=== PATIENT | male | born 1940 | race Caucasian/White ===

== ENCOUNTER 2019-01-30 08:26 | Observation (INO) | payer MEDICARE ==
[2019-01-30] VITALS (27 sets, daily range): BP systolic 119–170; BP diastolic 48–90
[~2019-01-30] VITALS: Ht 152.4 cm; Wt 109.8 kg
--- NOTE | ~2019-01-30 | D ---
[address] [address] DISCHARGE SUMMARY Name: BLANE KELLOGG Room: [address] Reva M.RShady#: [id number] Admission: 01/30/19 Attend Phys: Gilberto Eldridge MD Discharge: Date of : 44 Report #: [id number] THIS REPORT FOR: //name// CC: Timoteo Eldridge PRIMARY CARE PHYSICIAN: Dr. [facility]. FINAL DIAGNOSES: 1. Unstable angina. 2. Status post percutaneous coronary intervention to a large belkofski circumflex 90% stenosis. 3. Low normal systolic ejection fraction. 4. Diabetes. 5. Hyperlipidemia. 6. Status post coronary artery bypass grafting. HOSPITAL SUMMARY: The patient is a 78-year-old patient who has a history of prior bypass surgery. 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 His stress test revealed a large inferior defect and based on this, we proceeded with diagnostic cardiac catheterization for assessment of his bypass grafts. He had 3 conduits. The VAZQUEZ to LAD was widely patent. The saphenous vein graft to a small diagonal and marginal was patent. However, the vein graft to his right coronary artery was occluded. His belkofski LAD is occluded proximal to mid body. His belkofski RCA is occluded at its ostium. He had a high-grade stenosis in the 90% range to a circumflex marginal which gave off a distal circumflex PDA. This was treated successfully with drug-eluting stent. The patient does have chronic kidney disease and his preop creatinine was 2.4, on discharge it was 2.2 after aggressive hydration. He will need a BMP and followup. This will be in 3 weeks. DISCHARGE MEDICATIONS: Will include Lipitor 80 mg daily, aspirin 81 mg daily, Brilinta 90 mg p.o. b.i.d. and Coreg 6.25 mg p.o. b.i.d. PROCEDURE PERFORMED: Cardiac catheterization, percutaneous coronary intervention to the belkofski circumflex coronary artery. By: 0925 0211Gilberto Eldridge MD, [facility] /nt
--- NOTE | ~2019-01-30 | D ---
[address] [address] DISCHARGE SUMMARY Name: BLANE KELLOGG Room: [address] Reva Cota#: [id number] Admission: 01/30/19 Attend Phys: Gilberto Eldridge MD Discharge: 02/01/19 Date of : 44 Report #: [id number] THIS REPORT FOR: //name// CC: Timoteo Eldridge DATE OF SERVICE: 02/01/2019 FINAL DISCHARGE DIAGNOSES: 1. Abnormal nuclear stress test. 2. Unstable angina. 3. Status post percutaneous coronary intervention of the circumflex. 4. Mild reduction in global left ventricular systolic function, estimated ejection fraction of 50%. 5. Type 2 diabetes. 6. Hyperlipoproteinemia. 7. Status post remote coronary artery bypass grafting. 8. Postoperative femoral hematoma. PROCEDURES: 1. On 01/30/2019 -- left heart catheterization, selective coronary arteriography, graft study and percutaneous coronary intervention of the big sandy circumflex. 2. On 01/31/2019 -- thrombin injection into the pseudoaneurysm of the right femoral site. HOSPITAL COURSE: The patient is a very pleasant 78-year-old male with a history of coronary artery disease, had a recently abnormal stress test with chest discomfort compatible with angina. He has a number of risk factors including diabetes, hyperlipidemia and significant weight excess. In this context, Dr. Eldridge elected to proceed with cardiac catheterization, which revealed patent grafts, but significant stenosis in the mid portion of the big sandy circumflex. I placed one drug-eluting stent in the mid circumflex with no significant residual narrowing and NED 3 flow of the distal vessel. The patient developed a late right femoral bleed and hematoma at the right femoral site. A pseudoaneurysm was defined on femoral ultrasound, which was closed with thrombin injection into the pseudoaneurysm. The patient did well subsequently and ambulated in the hallways. There was persistent swelling of the right femoral site in the context of hematoma and hemoglobin fell to a melinda of 8.0 grams percent. He did well clinically subsequent to the thrombin injection, ambulated without difficulty. Laboratory on 01/31/2019 revealed a sodium 135, potassium 4.4, BUN 37, [place] [address] DISCHARGE SUMMARY Name: BLANE KELLOGG Jarrett [address] [id number] Admission: 01/30/19 Attend Phys: Gilberto Eldridge MD Discharge: 02/01/19 Date of : 44 Report #: [id number] creatinine 2.2, glucose 243. Hemoglobin 8 grams percent, white blood cell count 8800 with 95,000 platelets. The patient ambulated without difficulty and was discharged to home on the following medications: Aspirin 81 mg daily, atorvastatin 40 mg daily, carvedilol 6.25 mg b.i.d., cholecalciferol 1000 units b.i.d., cyanocobalamin 1000 mcg daily, docusate 100 mg b.i.d., glimepiride or Amaryl 2 mg q.a.m., guaifenesin or Mucinex 600 mg q.12 hours, MiraLax 17 grams b.i.d., and ticagrelor 90 mg b.i.d. FOLLOWUP: As scheduled with our nurse practitioner and subsequently with Dr. Eldridge. Thus, the patient is discharged to home in stable condition on the aforementioned medications with followup as iterated above. By: 1231 1732Fredis Badillo MD, [facility] /nt
--- NOTE | ~2019-01-30 | H ---
[address] [address] HISTORY AND PHYSICAL Name: BLNAE KELLOGG Room: [address] Reva MShadyRShady#: [id number] Admission: 01/30/19 Attend Phys: Gilberto Eldridge MD Discharge: 02/01/19 Date of : 42 Report #: [id number] THIS REPORT FOR: //name// Please refer to the History and Physical performed in the physician's office. By: [facility]8Medical Records Staff ELE /JUSTINA
[~2019-01-30 08:26] MED LIST: ACCUNEB SO1.25 MG/1 INH; ALLOPURINOL 30300 M2 PO; AMARYL2 MG PO; AMARYL4 MG PO; ASPIR 8181 MG PO; ATORVASTATIN CA40 MG PO; COLACE100 MG PO; COREG6.25 MG PO; DILTIAZEM 24HR120 M2 PO; FERREX 150150 MG PO; METFORMIN HCL500 MG PO; MIRALAX17 GM PO; MUCINEX600 MG PO; NORCO 5-325 TA1 EACH PO; NOVOLOG100 UNIT/1 SUBQ; PRAVACHOL80 MG PO; PRINIVIL10 MG PO; SENNA PO; VITAMIN B-12500 MCG PO; VITAMIN D1000 UNI1 PO
[2019-01-30] MEDS ORDERED: MOBIC7.5 MG PO (09:05)
[2019-01-30 09:15] LABS: HEMOGLOBIN 12.3 gm/dL (14.0-18.0); MCH 33.9 pg (26.0-34.0); MCHC 33.2 g/dL (28.0-37.0); MCV 102.1 fL (80.0-100.0); MPV 10.2 fl. (7.2-11.1); RBC 3.62 mil/uL (4.50-6.00); RDW-CV 15.6 % (10.5-14.5); WBC 5.7 thou/uL (4.0-11.0)
[2019-01-30 09:35] LABS: APTT 29.9 Seconds (25.0-31.3); PROTIME 10.6 Seconds (9.20-11.50)
[2019-01-30 09:49] LABS: ALBUMIN 3.3 g/dL (3.4-5.0); ALKALINE PHOSPHATASE 77 U/L (46-116); ANION GAP 11 mmol/L (7-16); BUN 39 mg/dL (7-18); CALCIUM 8.7 mg/dL (8.5-10.1); CHLORIDE 105 mmol/L (98-107); CO2 22 mmol/L (21-32); CREATININE 2.4 mg/dL (0.6-1.3); GLUCOSE 174 mg/dL (70-99); POTASSIUM 4.4 mmol/L (3.5-5.1); SGOT 28 U/L (15-37); SGPT 34 U/L (30-65); SODIUM 138 mmol/L (136-145); TOTAL BILIRUBIN 0.4 mg/dL (<0.1-1.0); TOTAL PROTEIN 7.5 g/dL (6.4-8.2)
[2019-01-30 10:31] LABS: CHOLESTEROL 152 mg/dL (<200); HDL CHOLESTEROL 44 mg/dL (>40); LDL CHOLESTEROL 93 mg/dL (<100); TC:HDL 3.5 Ratio (Not establshd); TRIGLYCERIDE 76 mg/dL (<150); VLDL 15 mg/dL (<40)
[2019-01-30 10:32] LABS: SERUM ASSESSMENT Clear
--- NOTE | 2019-01-30 13:23 | EKG ---
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: : 1940 Requested By: Gilberto Eldridge Order Number: [id number] Reading MD: Gilberto Eldridge Measurements Intervals [place] Rate: 60 P: -54 CO: 256 QRS: -66 QRSD: 160 T: 112 QT: 484 QTc: 484 Interpretive Statements Sinus or ectopic atrial rhythm Prolonged CO interval Right bundle branch block LVH with IVCD and secondary repol abnrm Borderline prolonged QT interval Compared to ECG 03/11/2015 11:48:14 Ectopic atrial rhythm now present Intraventricular conduction delay now present Early repolarization now present Sinus rhythm no longer present Left-axis deviation no longer present T-wave abnormality no longer present Possible ischemia no longer present Electronically Signed On 01-30-2019 13:23:01 HISTOLOGY SPECIALIST by Gilberto Eldridge [email or web address] <ELECTRONICALLY SIGNED> By: Gilberto Eldridge MD, [facility] 01/30/19 1323 0947 0947 Gilberto Eldridge MD, [facility] /EPI
--- NOTE | 2019-01-30 15:01 | EKG ---
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: : 1940 Requested By: Fredis Badillo Order Number: [id number] Reading MD: Gilberto Eldridge Measurements Intervals [place] Rate: 60 P: -8 ID: 265 QRS: -69 QRSD: 162 T: 94 QT: 509 QTc: 509 Interpretive Statements Sinus rhythm Prolonged ID interval Right bundle branch block LVH with IVCD and secondary repol abnrm Prolonged QT interval Baseline wander in lead(s) III,aVF Compared to ECG 01/30/2019 09:47:24 Ectopic atrial rhythm no longer present Electronically Signed On 01-30-2019 15:01:33 DIRECTOR OF PULMONARY UNIT by Gilberto Eldridge [email or web address] <ELECTRONICALLY SIGNED> By: Gilberto Eldridge MD, FACC 01/30/19 1501 1308 1308 Gilberto Eldridge MD, FAC /EPI
[2019-01-31] VITALS (8 sets, daily range): BP systolic 110–141; BP diastolic 60–83
[2019-01-31 05:02] LABS: HEMATOCRIT 30.3 % (42.0-52.0); MCH 34.8 pg (26.0-34.0); MCHC 33.6 g/dL (28.0-37.0); MCV 103.5 fL (80.0-100.0); MPV 10.6 fl. (7.2-11.1); RBC 2.92 mil/uL (4.50-6.00); RDW-CV 15.4 % (10.5-14.5)
[2019-01-31 05:05] LABS: HEMOGLOBIN 10.2 gm/dL (14.0-18.0)
[2019-01-31 05:14] LABS: ALBUMIN 2.6 g/dL (3.4-5.0); CALCIUM 8.3 mg/dL (8.5-10.1); CREATININE 2.2 mg/dL (0.6-1.3); POTASSIUM 4.4 mmol/L (3.5-5.1); TOTAL BILIRUBIN 0.7 mg/dL (<0.1-1.0); TOTAL PROTEIN 5.8 g/dL (6.4-8.2)
[2019-01-31 05:16] LABS: TROPONIN-I LEVEL 4.36 ng/mL (<0.06)
[2019-01-31 11:00] LABS: HEMATOCRIT 28.9 % (42.0-52.0); HEMOGLOBIN 9.7 gm/dL (14.0-18.0); MCH 34.7 pg (26.0-34.0); MCHC 33.7 g/dL (28.0-37.0); MCV 102.8 fL (80.0-100.0); NUCLEATED RBCS 0 /100WBC; PLATELET COUNT* 102 thou/uL (150-400); RBC 2.81 mil/uL (4.50-6.00); RDW-CV 15.7 % (10.5-14.5); WBC 8.7 thou/uL (4.0-11.0)
[2019-01-31 11:28] LABS: ABSOLUTE EOSINOPHILS 0.1 thou/uL (0.0-0.7); ABSOLUTE LYMPHOCYTES 0.9 thou/uL (0.8-5.3); ABSOLUTE MONOCYTES 0.7 thou/uL (0.0-1.2)
[2019-01-31 11:29] LABS: MACROCYTES 2+; OVALOCYTES 1+; PLATELET ESTIMATE DECREASED
[2019-01-31 11:34] LABS: SCHISTOCYTES Occasional
[2019-02-01] VITALS (8 sets, daily range): BP systolic 106–137; BP diastolic 54–78
[2019-02-01 05:12] LABS: HEMATOCRIT 23.2 % (42.0-52.0); MCH 35.1 pg (26.0-34.0); MCHC 34.3 g/dL (28.0-37.0); MCV 102.4 fL (80.0-100.0); MPV 10.1 fl. (7.2-11.1); RBC 2.27 mil/uL (4.50-6.00); RDW-CV 15.6 % (10.5-14.5); WBC 8.8 thou/uL (4.0-11.0)
[2019-02-01] MEDS ORDERED: BRILINTA90 MG PO (11:48)
[2019-02-01] MEDS ORDERED: NITROGLYCERIN0.4 MG SUBLING (11:51)
--- NOTE | 2019-02-01 13:38 | CARD ---
[address] [address] CARDIAC CATH REPORT Name: BLANE KELLOGG Room: [address] Reva Cota#: [id number] Admission: 01/30/19 Attend Phys: Gilberto Eldridge MD Discharge: 02/01/19 Date of : 44 Report #: [id number] THIS REPORT FOR: //name// APPROVED REPORT Study performed: 01/30/2019 09:22:37 Patient Details Patient Status: Out-Patient Room #: The patient is a 78 year-old male Event Personnel Gilberto Eldridge Drencher, Carmelita Ceron RN Civil Celebrant, Cat Leon RTR Scrub, Prosper Ramsey (R) Monitor, Fredis Badillo Project Program Manager Procedures Performed Art Access - R femoral artery* , Selective Right and Left Coronary AngiographyDES Place w/wo Plasty Single CIRC [id number] , Left VentriculogramLeft Heart Cath w/or w/o Coronaries [id number]; aortocoronary saphenous vein bypass graft study and VAZQUEZ graft study Indication Positive stress test Risk Factors Hypercholesterolemia, Hypertension Admission/Lab Medications/Medications given during procedure Aspirin, Platelet Aff. Inhib., Angiomax bolus and infusion Procedure Narrative The patient was brought electively to the Cardiac Catheterization Laboratory and was prepped and draped in a sterile manner. The right femoral was infiltrated with 2% Lidocaine subcutaneous anesthesia. A 7Fr X 35cm Sheath sheath was inserted into the right femoral artery. Coronary angiography was performed using coronary diagnostic catheters. The right coronary system was accessed and visualized with a 3DRC 6fr catheter. The left coronary system was accessed and visualized with a 6FR jl 4 catheter. The left ventricle was accessed and visualized with a PC: Angled Pig 5fr catheter. Left ventricular/Aortic Valve gradient assessed via catheter pullback. Pre-demployment femoral angiogram was performed . Sheath Sutured in Place. Will pull in [place] [address] CARDIAC CATH REPORT Name: BLANE KELLOGG Room: [address]#: [id number] Admission: 01/30/19 Attend Phys: Gilberto Eldridge MD Discharge: 02/01/19 Date of : 44 Report #: [id number] Intraoperative Conscious Sedation Sedation start time: 10:27 Case end Time: 12:13 Fentanyl 75 mcg Versed 4 mg Fluoro Time: 43.1 minutes Dose: DAP 387368 cGycm2 126 mGy Contrast Type and Amount: Visipaque 300 ml [place] Artery Percent Stenosis #1 widely patent VAZQUEZ graft to the LAD #2 widely patent saphenous vein graft to the diagonal vessel #3 definition of second previously occluded vein graft Diagnostic Cath Left Main 0% narrowing LAD 90% proximal stenosis and 100% mid vessel occlusion Circumflex 90% stenosis of the midportion of the dominant circumflex Right Coronary 100% proximal occlusion Hemodynamics The aortic pressure is 185/85 mmHg with a mean of mmHg. The left ventricular pressure is 187/16 mmHg with a mean of mmHg. The left ventricular end diastolic pressure is 27 mmHg. Pullback from the left ventricle to the aorta revealed no gradient across the aortic valve. PCI Technique Lesion Anticoagulation was achieved with Angiomax. Patient was preloaded with Angiomax IV 15 ml. Percutaneous coronary intervention was performed on the mid circumflex artery segment. The lesion stenosis prior to intervention was 90% with NED 3 flow. A 6FR LAUNCHER JL4.0 Guide Catheter was used to engage the LCA ostium. A IG: BMW 190cm Interventional Guidewire was used to cross the lesion. BALLOON DILATION A Balloon catheter Trek RX 2.25 X 12 was inserted and inflated up to 18.00atm for 19seconds. STENT DEPLOYMENT A drug-eluting stent [place] RX Stent 2.5X15mm [place] [address] CARDIAC CATH REPORT Name: BLANE KELLOGG Room: [address] Reva Cota#: [id number] Admission: 01/30/19 Attend Phys: Gilberto Eldridge MD Discharge: 02/01/19 Date of : 44 Report #: [id number] inflated up to 15.00atm for 13seconds. Additional Inflation: 17.00atm for 11seconds. Final angiography reveals 0 % stenosis with NED 3 flow. Conclusion #1 severe coronary artery disease characterized by the following A 90% proximal LAD stenosis with 100% mid vessel occlusion B 90% stenosis of the midportion of the dominant circumflex C total occlusion of the right coronary artery proximally #2 graft study characterized by the following A widely patent VAZQUEZ graft to the LAD B widely patent saphenous vein graft to diagonal branches of the LAD C definition of a second vein graft occluded at its origin #3 moderate elevation of left ventricular end-diastolic pressure at rest with moderate systemic systolic hypertension #4 successful percutaneous coronary intervention with deployment of a drug-eluting stent at site of 90% midcircumflex stenosis with 0% residual narrowing and NED-3 flow to the distal vessel Recommendations Cardiac Risk Reduction Program Aggressive Medical Therapy Medications Administered Aspirin (any) Ticagrelor Diagnostic Cath Approved by: Gilberto Eldridge MD Date/Time: 02/01/2019 13:37:08 <ELECTRONICALLY SIGNED> By: Fredis Badillo MD, [facility] 02/01/19 1338 1338 1338Fredis Badillo MD, FAC /INF
--- NOTE | 2019-02-02 14:55 | EKG ---
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: [facility] : 1940 Requested By: Fredis Badillo Order Number: [id number] Mesfin MD: Jarrett Kebede Measurements Intervals [place] Rate: 68 P: -11 CA: 254 QRS: -71 QRSD: 152 T: 127 QT: 468 QTc: 498 Interpretive Statements Sinus rhythm Prolonged CA interval RBBB and LAFB Compared to ECG 01/30/2019 13:08:15 Left anterior fascicular block now present Prolonged QT interval no longer present Electronically Signed On 02-02-2019 14:55:09 CDT by Jarrett Kebede [email or web address] <ELECTRONICALLY SIGNED> By: Jarrett Kebede MD, FACC 02/02/19 1455 0300 0300 Jarrett Kebede MD, FAC /EPI
== END 2019-02-01 12:35 | disposition home or self-care (01) ==
LOC: M.CL 08:26 → M.TBA-CV 12:24 → M.2W 15:54
PROVIDERS: Internal Medicine; Internal Medicine Cardiovascular Disease; ADMIT Internal Medicine Cardiovascular Disease
DX: I25.110 Atherosclerotic heart disease of native coronary artery with unstable angina pectoris (principal); E78.5 Hyperlipidemia, unspecified; L76.32 Postprocedural hematoma of skin and subcutaneous tissue following other procedure; I25.5 Ischemic cardiomyopathy; I35.0 Nonrheumatic aortic (valve) stenosis; I10 Essential (primary) hypertension; Z95.0 Presence of cardiac pacemaker; Z79.899 Other long term (current) drug therapy; Z79.82 Long term (current) use of aspirin

== ENCOUNTER 2019-02-05 11:40 | Inpatient (IN) | payer MEDICARE ==
[~2019-02-05] VITALS: Ht 152.4 cm; Wt 109.8 kg
--- NOTE | ~2019-02-05 | OP ---
[address] [address] OPERATIVE REPORT Name: BLANE KELLOGG Room: [place] [address] ADM IN M.R.#: [id number] Admission: 02/05/19 Attend Phys: Elder Zhong MD Discharge: Date of : 44 Report #: [id number] THIS REPORT FOR: //name// CC: Timoteo Macias Chente DATE OF SERVICE: 02/06/2019 PREOPERATIVE DIAGNOSIS: Right ureteral stone with ureteral obstruction. POSTOPERATIVE DIAGNOSIS: Right ureteral stone with ureteral obstruction. PROCEDURE PERFORMED: Cystoscopy with right retrograde pyelogram, ureteroscopy, laser lithotripsy and stent placement. A 22 Modifier will be added due to the increased length of time and difficulty due to the large stone and impacted stone. SURGEON: Wallace Espinoza MD. PATTERN MAKER PROGRAMER: None. ANESTHESIA: General. ESTIMATED BLOOD LOSS: Minimal. COMPLICATIONS: None. INDICATION FOR PROCEDURE: This is a 78-year-old gentleman. He was admitted for hematoma and bleeding after a cardiac catheterization. CT scan revealed a large 12-13 mm right distal ureteral stone with obstruction and hydronephrosis. He also was found to have acute on chronic renal insufficiency. There was concern that the stone was causing significant obstruction resulting in renal failure. His options for management were discussed in detail. It was recommended he undergo cystoscopy with retrograde pyelogram, possible ureteroscopy and laser lithotripsy and stent placement. The risks, benefits, and possible complications were explained in detail to both he and his . They had a chance to ask questions, which were answered to their satisfaction and they elected to proceed. DESCRIPTION OF PROCEDURE: After obtaining informed consent, the patient was taken to the operating room and placed in the supine position. After adequate general anesthesia and IV antibiotics, he was prepped and draped in the dorsal lithotomy position. A 21-Surinamese cystoscope with 30 degree lens was introduced in the urethra, which was normal all the way down the prostatic urethra, which showed moderate bilobar hypertrophy. Upon entering the bladder, [place] [address] OPERATIVE REPORT Name: BLANE KELLOGG Room: [address] IN [facility]#: [id number] Admission: 02/05/19 Attend Phys: Elder Zhong MD Discharge: Date of : 44 Report #: [id number] systematically inspected. There were no stones, tumors or diverticula. Under fluoroscopy, manager grocery images were obtained. There was a large calcific density in the right lower quadrant. A retrograde pyelogram was performed. There was normal caliber ureter up to a large filling defect, minimal contrast passed proximal to the stone. A sensor guidewire was attempted to be passed alongside the stone, proximal to the stone, but it would not pass. Both tips were used including an angle-tipped Glidewire over a Pollack catheter, through the Pollack catheter as a backing, but it would not pass easily, it was determined that the sensor wire would be placed in the distal ureter and rigid ureteroscopy was carried out alongside this wire into the distal ureter where the stone was identified. Using a 300 micron holmium laser fiber at a setting 0.8 and 8 Hz, the stone was fragmented in multiple tiny fragments. Stone was very dense and this took 2-3 times the average time to break up the stone. After greater than 5 minutes, multiple fragments passed proximal end of the very dilated ureter using a Zero Tip Nitinol basket. These were basketed out. This took multiple trips due to the large size of the stone. First of all, the fragments were too large to be extracted, so they were fragmented further with the laser again adding 2-3 times the amount of time for an average case. Once the stone fragments had been distracted, the ureter was inspected. It was extremely dilated. There was no evidence of any stones. A retrograde pyelogram was performed. There was no evidence of any extravasation, although there was significant narrowing where the stone had been lodged and imbedded in the distal ureter. It was determined that a stent would be placed; a 7 x 28 cm double-J stent was passed in retrograde fashion over the wire. A good coil was noted overlying the severely dilated renal pelvis and a good coil was directly visualized in the bladder. Stone fragments were irrigated out the bladder, passed off the table and sent to the lab for stone analysis. Uro-Jet was applied per urethra. The patient was extubated and taken to recovery in good condition having tolerated the procedure well. Plan is to continue the catheter 2-3 weeks and perform stent removal at that time. By: 12 2046Wallace Espinoza MD /maurice
--- NOTE | ~2019-02-05 | CON ---
[address] [address] CONSULTATION Name: BLANE KELLOGG Room: [address] IN .R.#: [id number] Admission: 02/05/19 Attend Phys: Elder Zhong MD Discharge: Date of : 44 Report #: [id number] THIS REPORT FOR: //name// CC: [facility] Timoteo Eldridge DATE OF SERVICE: 02/05/2019 REASON FOR CONSULTATION: Right hydronephrosis. HISTORY OF PRESENT ILLNESS: The patient is a 78-year-old male who was recently discharged from [facility] after he underwent coronary artery catheterization and stent. He had a femoral hematoma post-catheterization, but was stabilized and discharged; however, he presents today with dyspnea, weakness and dizziness. He had a chest CAT scan, which showed part of the kidneys which showed right hydronephrosis with cortical thinning as well as several left nonobstructing stones. He does have a history of passing stones, but has never required surgery for these. He denies any right flank pain or difficulty urinating. He does not have an outpatient urologist. Currently, he looks well. PAST MEDICAL HISTORY: Includes coronary artery disease, status post recent cardiac catheterization. Hypertension, non-Hodgkin lymphoma, diabetes, gout, high cholesterol, nephrolithiasis. Chronic kidney disease. PAST SURGICAL HISTORY: Includes a CABG, Mohs surgery, bilateral carpal tunnel release, oral surgery. Some orthopedic surgeries and a rectal fissure repair. ALLERGIES: None. MEDICATIONS: Reviewed. Please see inpatient medical record. FAMILY HISTORY: Noncontributory. SOCIAL HISTORY: The patient denies any recreational drug use or alcohol use. He denies smoking. He lives with his . REVIEW OF SYSTEMS: A 12-point review of systems is performed and is negative except as noted above in HPI. PHYSICAL EXAMINATION: VITAL SIGNS: Temperature is 36.6, pulse rate of 71, respirations 16, blood pressure 129/63. He is 99% on room air. GENERAL: He is a well-developed, well-nourished elderly white male, in no acute distress. He is alert and oriented x 3 [place] [address] CONSULTATION Name: BLANE KELLOGG Room: [address] IN [facility]#: [id number] Admission: 02/05/19 Attend Phys: Elder Zhong MD Discharge: Date of : 42 Report #: [id number] HEENT: Normocephalic, atraumatic. RESPIRATIONS: Unlabored. HEART: Regular. ABDOMEN: Soft, nontender, nondistended. GENITOURINARY: He has normal uncircumcised phallus and bilateral normal testes. EXTREMITIES: He has a large bruising over the right groin onto the right upper leg area. BACK: He has no CVA tenderness. LABORATORY DATA: White count is 7.1, hemoglobin 7.5, platelets are 146. BMP shows a BUN of 51, creatinine of 2.7. His baseline creatinine in the [employer] 7 system is around 2.2 back on 01/31/2019. Prior to this, creatinine in the system was 1.[address] scan of the chest was reviewed. He does have significant right hydroureteronephrosis, however, unable to determine the cause of this as the ureters are not fully evaluated. He also has several nonobstructing stones on the left, largest measuring 9 mm. The kidney parenchyma on the right does look somewhat thinned pointing to a more chronic process. ASSESSMENT AND PLAN: 1. Right hydronephrosis of unknown origin. 2. Acute on chronic kidney disease. 3. Nephrolithiasis. Based on the CAT scan, this does appear to be potentially more chronic process due to the renal parenchymal thinning on the right side. The patient denies any flank pain or prior urologic surgery, so I am unclear as to etiology of the hydro at this time. I would recommend we check a urinalysis and a CT of the abdomen and pelvis noncontrast. I also recommend checking a postvoid residual to ensure no retention. Based on these results, we will be able to provide further recommendations, but again this does look like a more chronic process given the appearance of the kidney on CT. Unfortunately, I do not have any prior imaging in this system to compare to. We will continue to follow along. He will not need urgent intervention for that right kidney unless he were to develop pyelonephritis or if it was determined that his worsening renal function was from that kidney, although I suspect right now it is probably from his acute anemia. By: [id number] Bang MD /maurice
[~2019-02-05 11:40] MED LIST changes: +BRILINTA90 MG PO; +MOBIC7.5 MG PO; +NITROGLYCERIN0.4 MG SUBLING
[2019-02-05 11:47] VITALS: BP 114/64
[2019-02-05 12:20] LABS: HEMATOCRIT 22.3 % (42.0-52.0); HEMOGLOBIN 7.5 gm/dL (14.0-18.0); MCH 35.5 pg (26.0-34.0); MCHC 33.6 g/dL (28.0-37.0); MCV 105.8 fL (80.0-100.0); MPV 9.2 fl. (7.2-11.1); NUCLEATED RBCS 0 /100WBC; PLATELET COUNT* 146 thou/uL (150-400); RBC 2.11 mil/uL (4.50-6.00); RDW-CV 16.4 % (10.5-14.5); WBC 7.1 thou/uL (4.0-11.0)
[2019-02-05 12:32] LABS: APTT 26.8 Seconds (25.0-31.3); PROTIME 10.5 Seconds (9.20-11.50)
[2019-02-05 12:53] LABS: ABSOLUTE BASOPHILS 0.1 thou/uL (0.0-0.2); ABSOLUTE EOSINOPHILS 0.1 thou/uL (0.0-0.7); ABSOLUTE LYMPHOCYTES 0.3 thou/uL (0.8-5.3); ABSOLUTE NEUTROPHILS 6.5 thou/uL (1.6-8.1); ATYPICAL LYMPHS 1 %; MACROCYTES 1+; PLATELET ESTIMATE DECREASED
[2019-02-05 12:55] LABS: ALBUMIN 3.3 g/dL (3.4-5.0); CALCIUM 8.5 mg/dL (8.5-10.1); CREATININE 2.7 mg/dL (0.6-1.3); POTASSIUM 4.1 mmol/L (3.5-5.1); TOTAL BILIRUBIN 1.3 mg/dL (<0.1-1.0); TOTAL PROTEIN 6.9 g/dL (6.4-8.2)
[2019-02-05 12:57] LABS: TROPONIN-I LEVEL 0.61 ng/mL (<0.06)
--- NOTE | 2019-02-05 15:16 | EKG ---
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1940 Requested By: Yusef Gross Order Number: [id number] MD: Dustin Chaudhary Measurements Intervals [place] Rate: 71 P: -66 ND: 263 QRS: -68 QRSD: 180 T: 113 QT: 472 QTc: 513 Interpretive Statements Sinus or ectopic atrial rhythm Ventricular trigeminy Prolonged ND interval RBBB and LAFB LVH with secondary repolarization abnormality Compared to ECG 01/31/2019 03:00:01 Ventricular premature complex(es) now present Left ventricular hypertrophy now present Electronically Signed On 02-05-2019 15:16:09 CDT by Dustin Chaudhary [email or web address] <ELECTRONICALLY SIGNED> By: Dustin Chaudhary MD, FACC 02/05/19 1516 1152 1152 Dustin Chaudhary MD, FAC /EPI
[2019-02-05 15:30] VITALS: BP 135/75
[2019-02-05 18:47] LABS: URINE BILIRUBIN NEGATIVE (Negative); URINE BLOOD NEGATIVE (Negative); URINE CLARITY CLEAR; URINE COLOR STRAW; URINE GLUCOSE-RANDOM 2+ (Negative); URINE KETONES NEGATIVE (Negative); URINE LEUKOCYTES-REFLEX NEGATIVE (Negative); URINE NITRITE-REFLEX NEGATIVE (Negative); URINE PROTEIN NEGATIVE (Negative); URINE UROBILINOGEN 0.2 E.U./dl (0.2-1.0)
[2019-02-05 19:50] VITALS: BP 122/66
[2019-02-05 23:58] VITALS: BP 130/76
[2019-02-06 04:00] VITALS: BP 112/55
[2019-02-06 04:49] LABS: ABSOLUTE LYMPHOCYTES 0.3 thou/uL (0.8-5.3); ABSOLUTE MONOCYTES 0.1 thou/uL (0.0-1.2); ABSOLUTE NEUTROPHILS 8.4 thou/uL (1.6-8.1); HEMATOCRIT 20.4 % (42.0-52.0); LYMPHOCYTES 3.3 %; MCH 35.7 pg (26.0-34.0); MCHC 33.8 g/dL (28.0-37.0); MCV 105.5 fL (80.0-100.0); MONOCYTES 1.6 %; MPV 9.2 fl. (7.2-11.1); NUCLEATED RBCS 0 /100WBC; PLATELET COUNT* 144 thou/uL (150-400); POLYS 95.1 %; RBC 1.93 mil/uL (4.50-6.00); RDW-CV 16.3 % (10.5-14.5); WBC 8.8 thou/uL (4.0-11.0)
[2019-02-06 04:55] LABS: CALCIUM 8.2 mg/dL (8.5-10.1); CREATININE 2.8 mg/dL (0.6-1.3); HEMOGLOBIN 6.9 gm/dL (14.0-18.0)
[2019-02-06 08:00] VITALS: BP 107/54
[2019-02-06 09:15] VITALS: BP 101/54; BP 105/69; BP 110/58; BP 113/60
[2019-02-06 14:15] LABS: HEMATOCRIT 22.6 % (42.0-52.0); HEMOGLOBIN 7.5 gm/dL (14.0-18.0)
[2019-02-06 16:10] VITALS: BP 112/60
[2019-02-06 18:57] VITALS: BP 142/66
[2019-02-06 19:40] VITALS: BP 139/58
[2019-02-07] VITALS: BP 116/60
[2019-02-07 04:00] VITALS: BP 124/65
[2019-02-07 04:50] LABS: ABSOLUTE EOSINOPHILS 0.1 thou/uL (0.0-0.7); ABSOLUTE LYMPHOCYTES 0.7 thou/uL (0.8-5.3); ABSOLUTE MONOCYTES 0.6 thou/uL (0.0-1.2); ABSOLUTE NEUTROPHILS 6.8 thou/uL (1.6-8.1); BASOPHILS 0.1 %; EOSINOPHILS 0.8 %; HEMATOCRIT 22.3 % (42.0-52.0); HEMOGLOBIN 7.5 gm/dL (14.0-18.0); LYMPHOCYTES 8.4 %; MCH 34.1 pg (26.0-34.0); MCHC 33.7 g/dL (28.0-37.0); MCV 100.9 fL (80.0-100.0); MONOCYTES 7.1 %; MPV 8.7 fl. (7.2-11.1); NUCLEATED RBCS 0 /100WBC; PLATELET COUNT* 139 thou/uL (150-400); POLYS 83.6 %; RBC 2.21 mil/uL (4.50-6.00); RDW-CV 21.3 % (10.5-14.5); WBC 8.2 thou/uL (4.0-11.0)
[2019-02-07 05:04] LABS: CALCIUM 8.1 mg/dL (8.5-10.1); CREATININE 2.6 mg/dL (0.6-1.3); POTASSIUM 4.1 mmol/L (3.5-5.1)
[2019-02-07 08:00] VITALS: BP 119/70
--- NOTE | 2019-02-07 09:19 | CON ---
[address] [address] CONSULTATION Name: BLANE KELLOGG Room: [place] [address] ADM IN .R.#: [id number] Admission: 02/05/19 Attend Phys: Elder Zhong MD Discharge: Date of : 42 Report #: [id number] THIS REPORT FOR: //name// [facility] DATE OF SERV[facility]: 02/06/2019 CONSULTING PHYSICIAN: Dr. Elder Zhong. REASON FOR NEPHROLOGY CONSULTATION: Worsened creatinine on chronic kidney disease, acute kidney injury. ADMISSION DIAGNOSIS: Exertional dyspnea and dizziness. 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 The patient had unstable angina and so therefore was admitted for stent placement on 01/30/2019. At that time, he developed a right femoral pseudoaneurysm, which needed treatment. His ejection fraction was about 50%. He takes meloxicam daily at home. On this admission, his hemoglobin was 7.5 on admission and now it has dropped to 6.9 and he reported some melena on admission. His hemoglobin was 12.3 at the time of stent placement on 01/30/2019. His creatinine was 2.2 on 01/31/2019 a day after the stent was placed and it is up to 2.8 today and hence Nephrology has been consulted. His CT abdomen shows a right distal ureter 1-cm stone causing right-sided hydronephrosis and left intrarenal calculi, nonobstructive. He also takes meloxicam at home daily. He is also on Brilinta. He is not having any urinary problems. ALLERGIES: No known drug allergies. REVIEW OF SYSTEMS: As mentioned above, he is not having any right flank pain and otherwise a 10-point review of systems done is negative. HOME MEDICATIONS: Include Mucinex, aspirin, cholecalciferol, cyanocobalamin, carvedilol, atorvastatin, docusate sodium, glimepiride, polyethylene glycol, meloxicam, ____, nitroglycerin. PAST MEDICAL AND SURGICAL HISTORY: 1. [place] [address] CONSULTATION Name: BLANE KELLOGG Jarrett Room: [address] IN [facility]#: [id number] Admission: 02/05/19 Attend Phys: Elder Zhong MD Discharge: Date of : 42 Report #: [id number] 2. Non-Hodgkin's lymphoma, the patient got CHOP therapy at that time and apparently since then according to the patient's , his creatinine has been high. 3. Rectal fissure repair. 4. Right rotator cuff repair. 5. Right tibia and fibula fracture ORIF, then hardware removal, ended up with DVT. 6. Mohs surgery in the left ear. 7. Bilateral carpal tunnel releases. 8. Avq-uicyjyz-lnesbfvxb diabetes mellitus. 9. Oral surgery. 10. ____. 11. Dyslipidemia. 12. Kidney stones passed on his own. 13. Coronary artery bypass graft x5. FAMILY HISTORY: No history of any kidney disease in family that the patient told me about. SOCIAL HISTORY: He does not smoke, drink alcohol, or use illicit drugs. He lives at home with his . PHYSICAL EXAMINATION: VITAL SIGNS: Temperature is 36.6, pulse rate is 72, respiratory rate is 18, blood pressure is 112/55, and pulse ox is 96% on no oxygen. GENERAL: He is awake, alert, oriented x3, no acute distress. HEAD, EYES, EARS, NOSE AND THROAT: Mucous membranes are moist. NECK: There is no JVD. CHEST: Bilateral clear to auscultation. No crackles or wheezing. CARDIOVASCULAR: S1, S2 normal. No murmurs or rubs. ABDOMEN: Soft, nondistended, nontender, bowel sounds present. EXTREMITIES: There is 1+ lower extremity edema, more on the right extremity and right thigh area hematoma is resolving. GENITOURINARY: There is no CVA tenderness. NEUROLOGIC FUNCTION: Gross neurological function is intact. PSYCHIATRIC: Mood and affect seem to be normal. LABORATORY DATA: WBC is 8.8, hemoglobin is 6.9, platelet count is 144. Sodium is 139, potassium is 4.0, chloride is 105, CO2 is 20, creatinine is 2.8, BUN is 56. Other labs were reviewed. IMAGING: Venous Doppler study, groin ultrasound, V/Q scan, chest x-ray, CT of chest and pelvic CT were reviewed. ASSESSMENT: 1. Acute kidney injury on chronic kidney disease stage 4, baseline creatinine [address] [address] CONSULTATION Name: BLANE KELLOGG Room: [place] [address] ADM IN M.R.#: [id number] Admission: 02/05/19 Attend Phys: Elder Zhong MD Discharge: Date of : 42 Report #: [id number] around 2.2 and now creatinine is 2.8, likely because of obstructive uropathy. He has evidence of a 1-cm right distal ureteral stone causing right-sided hydronephrosis, also takes NSAIDs, takes meloxicam daily, also has likely GI bleed, and also received IV contrast last week on 01/30/2019. The UA did not show any protein or blood in it. 2. Anemia of blood loss, the patient reported melena, he is on Brilinta. Hemoglobin has dropped from 12.3 on 01/30/2019 to 6.9 on 02/06/2019. 3. Anion gap metabolic acidosis. 4. Coronary artery disease, recent coronary artery stent placement on 01/30/2019. 5. History of diabetes type 2, corneal retinopathy. 6. Hypertension. Blood pressure is controlled. 7. History of coronary artery bypass graft in the past. 8. Recent right femoral pseudoaneurysm, improving. PLAN: 1. I would recommend a GI consult because his hemoglobin has been dropping. 2. Urology has already been consulted. He will probably need intervention for this 1-cm stone in the distal ureter. He has several interpolar left nonobstructing calculi, nothing to do for them. 3. The patient receiving blood transfusion, may need some IV fluids. We will start him on some gentle hydration. 4. Keep all nephrotoxic agents, including meloxicam on hold. 5. The patient should be on a renal diet. 6. Also, check bladder scan to rule out urinary retention. Discussed with the patient, the patient's , and the patient's nurse and I did spend more than 35 minutes in the patient's care. Thank you for this consultation. We will continue to follow along with you. <ELECTRONICALLY SIGNED> By: Katrin Bryant MD 02/07/19 0919 [id number] Bryant MD /nt
[2019-02-07 11:06] VITALS: BP 102/53; BP 117/60; BP 127/66; BP 145/86
--- NOTE | 2019-02-07 13:23 | CON ---
[address] [address] CONSULTATION Name: BLANE KELLOGG Room: [place] [address] ADM IN M.R.#: [id number] Admission: 02/05/19 Attend Phys: Elder Zhong MD Discharge: Date of : 42 Report #: [id number] THIS REPORT FOR: //name// CC: Timoteo Eldridge DATE OF SERVICE: 02/05/2019 CARDIOLOGY CONSULTATION HISTORY OF PRESENT ILLNESS: The patient is a 78-year-old white male who I was asked to see in the hospital after he complained of being short of breath. The patient has an extensive past medical history. He apparently had an abnormal stress test in 2014. He underwent a cardiac catheterization and was found to have multivessel coronary artery disease. He was followed by Dr. Eldridge at that time. He was referred to Dr. Fredis Diane and underwent 5-vessel bypass surgery at [facility] in 2014. 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 He actually saw my partner, Dr. Eldridge in December. He had a history of mild aortic stenosis. He apparently underwent his stress test and it was noted to be abnormal. He was seen by my partner, Dr. Badillo. He underwent a cardiac catheterization a week ago by Dr. Badillo. Cardiac catheterization was performed from the right femoral artery. There was a patent VAZQUEZ graft to the LAD and patent vein graft to the diagonal. A second vein graft appeared to be occluded. There was a 90% narrowing in the proximal LAD. The mid LAD was completely occluded. Circumflex had a 90% proximal stenosis. The right coronary artery was occluded. He was given Angiomax and Dr. Badillo then placed a drug-eluting stent in the mid circumflex. The patient was then placed on ticagrelor. The patient had an echocardiogram showing ejection fraction of 50%. After the procedure, he developed pain in his right groin. He was found to have a pseudoaneurysm of the right femoral artery. He then underwent a thrombin injection. He was discharged a week ago. Since his discharge, he has had no chest pain. However, he has been short of breath with exertion. He denied any syncope, fever or cough. His right leg has been swollen. He has had no leg pain. PAST MEDICAL HISTORY: Otherwise significant for carpal tunnel surgery, removal of skin cancer. He was found to have enlarged lymph nodes in his left cervical area, with biopsy consistent with lymphoma. He had history of chemotherapy and radiation therapy in the past. He has had surgery in his right knee. He has hypertension, diabetes and hyperlipidemia. MEDICATIONS: Include allopurinol, aspirin, Lipitor, carvedilol, glimepiride, Synthroid, [place]oxicam [place] [address] CONSULTATION Name: BLANE KELLOGG Room: [address] IN [facility]#: [id number] Admission: 02/05/19 Attend Phys: Elder Zhong MD Discharge: Date of : 42 Report #: [id number] ALLERGIES: He has no known drug allergies. FAMILY HISTORY: His parents had heart disease. SOCIAL HISTORY: He is . He and his live in [place], [place]. 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 No smoking. No alcohol abuse. REVIEW OF SYSTEMS: He has had no history of stroke. He does snore at night. No history of peptic ulcer disease or liver disease. He has chronic kidney disease. No chronic skin condition. No psychiatric illness. PHYSICAL EXAMINATION: GENERAL: Revealed an elderly male, lying in bed. He appeared in no distress. VITAL SIGNS: Blood pressure 130/60, pulse 70. He was afebrile. HEENT: He was anicteric. Conjunctivae pink. Mucous membranes moist. NECK: Neck veins were difficult to assess. Bilateral carotid bruits were noted. CHEST: Clear to auscultation. CARDIAC EXAMINATION: Regular rate and rhythm, with a grade 3 mid peaking systolic ejection murmur. ABDOMEN: Obese. EXTREMITIES: There is pitting edema of both lower extremities below the knee. No Homans sign. Dorsalis pedis pulse 2+ bilaterally. SKIN: Warm and dry. NEUROLOGICAL EXAMINATION: Nonfocal. LABORATORY DATA: His ECG showed a sinus rhythm, occasional PVC, left anterior fascicular block and a right bundle branch block. His workup, his echocardiogram last month showed left ventricular hypertrophy, ejection fraction 50%, mild aortic insufficiency, mild aortic stenosis and mild mitral regurgitation. His nuclear stress test last month showed evidence of ischemia with reversible defect in the inferior wall. His chest x-ray today showed cardiomegaly. No pulmonary edema, no infiltrates, no effusions, low lung volumes. He underwent a CT scan of the chest without contrast today that showed median sternotomy coronary calcifications, aortic valve calcification, severe right hydronephrosis, kidney stone and gallstones. He had a V/Q scan of the lungs today that was low probability for pulmonary embolus. His lab work today, sodium 143; BUN 51, which is up from 39 a week ago and his creatinine is up to 2.7, which is up from 2.4 a week ago. His liver function studies are normal. Albumin 3.3. His troponin last week peaked at 4.36; today, it is 0.61. His BNP 2261. Recent cholesterol 152, triglycerides 76, HDL 44 and LDL 93. Recent TSH was 5.7. His white blood cell count is 7.1. His hemoglobin a week ago was 12.3, today it is 7.5. His ferritin is 281. Hematocrit 22.3, MCV 105 and platelet count 146,000. [place] [address] CONSULTATION Name: BLANE KELLOGG Jarrett Room: [place] [address] ADM IN [facility]#: [id number] Admission: 02/05/19 Attend Phys: Elder Zhong MD Discharge: Date of : 42 Report #: [id number] IMPRESSION AND RECOMMENDATIONS: 1. Shortness of breath, suspect secondary to anemia. We will consider transfusion. No evidence of pulmonary edema, pneumonia or pulmonary embolus. Possibly related to Brilinta and I would consider switching to Plavix if he continues to be short of breath. 2. Chronic kidney disease. 3. Coronary artery disease. Recent stenting. The patient is on aspirin and Plavix. 4. Diabetes. 5. Hypertension. The patient is on a beta zaynab. 6. Hyperlipidemia. The patient is on a statin drug. 7. History of lymphoma with previous chemotherapy. 8. Recent thrombin injection for a pseudoaneurysm. 9. Mild aortic stenosis. <ELECTRONICALLY SIGNED> By: Dustin Chaudhary MD, FACC 02/07/19 1323 1607 [id number] Oswaldo Chaudhary MD, [facility] HOSPITALWilfredo /nt
--- NOTE | 2019-02-07 19:37 | CON ---
[address] [address] CONSULTATION Name: BLANE KELLOGG Room: [address] IN .R.#: [id number] Admission: 02/05/19 Attend Phys: Elder Zhong MD Discharge: 02/07/19 Date of : 42 Report #: [id number] THIS REPORT FOR: //name// CC: Timoteo Eldridge MD [facility] DICTATED BY: [facility] DATE OF SERVICE: 02/06/2019 PRIMARY CARE PHYSICIAN: Gilberto Eldridge M.D., F.A.C.C. Please note at the time of this dictation, the patient was seen and physically examined by myself. REASON FOR CONSULTATION: Acute anemia. HISTORY OF PRESENT ILLNESS: This is a 78-year-old male who had recently been discharged from the hospital about 5 days ago after having a cardiac stent placed and has been on Brilinta and aspirin since that time. The patient has an extensive cardiovascular history as well in the past in which he has had a CABG several years ago. The patient states he started having bleeding from his right groin incision site and that developed a very large hematoma in his right thigh and groin area. He denies any upper GI symptoms of any nausea, vomiting or abdominal pain. He denies any melanotic or bright red bloody stools. Since he left the hospital, hemoglobin prior to discharge was 13 and when he was readmitted to the hospital, hemoglobin had dropped down to 7.5. He then dropped down to 6.9 today and is getting a unit of blood at the present time. He states he did have a bowel movement that was soft and formed last evening that he noticed that since he has been started taking the iron tablets after his last hospitalization that his stools have been a little bit darker but not black. He does admit that he takes meloxicam daily as well but again denies any upper GI symptoms. He has not had a colonoscopy since the and he does not recall what that showed. ALLERGIES: No known drug allergies. MEDICATIONS: From home include MiraLax, Amaryl, Mucinex, Colace, Lipitor, Nitrostat, Brilinta, Mobic, Coreg, vitamin B, vitamin D and aspirin. PAST MEDICAL HISTORY: Hypertension, non-Hodgkin's lymphoma, diabetes, gout and high cholesterol. He has had a history of kidney stones, which he has passed [place] [address] CONSULTATION Name: BLANE KELLOGG Room: [address]#: [id number] Admission: 02/05/19 Attend Phys: Elder Zhong MD Discharge: 02/07/19 Date of : 42 Report #: [id number] PAST SURGICAL HISTORY: Rotator cuff, tib-fib fracture with surgical repair, bilateral carpal tunnel and he has had open heart surgery in 2015. FAMILY HISTORY: Negative for any GI or female cancers. SOCIAL HISTORY: Denies any alcohol, tobacco or illegal drug use. REVIEW OF SYSTEMS: Twelve-point review of systems is essentially negative except what is mentioned in the HPI. PHYSICAL EXAMINATION: VITAL SIGNS: Temperature 36.6, pulse 72, respirations 18 and blood pressure 112/55. HEART: Regular rate and rhythm. LUNGS: Clear. ABDOMEN: Soft. Positive bowel sounds in all 4 quadrants with no masses or tenderness noted. LABORATORY DATA: Hemoglobin on admission 7.5, is down to 6.9 and getting a unit of blood, white count 8.8 and platelets 144. GFR is 22, BUN is 56 and creatinine is 2.8. Total bilirubin 1.3, alkaline phosphatase 78, ALT 34, AST is 28, ferritin is 281 and B12 is 5181. RADIOLOGICAL DATA: CT shows an obstructing 1 cm right renal calculi, diverticulosis and some cholelithiasis. IMPRESSION: 1. Acute anemia. 2. Large right groin hematoma, requiring intervention. 3. Nonsteroidal anti-inflammatory drug use. 4. Anticoagulant therapy for recent stent. 5. Right renal calculi that is obstructing. PLAN: 1. Lengthy discussion with the patient's and Dr. Zhong, the hospitalist and felt that his anemia is related to his right groin hematoma, which was very extensive and we will hold off on any endoscopy studies at this time. 2. If he should become symptomatic and noticed obvious GI bleed, we can reevaluate at that time. Otherwise, we will plan on outpatient colonoscopy once he has been discharged. Thank you for allowing us to participate in this patient's care. Please do not hesitate to call with any questions in regard to this consult. [address] [address] CONSULTATION Name: BLANE KELLOGG Room: [address] IN M.R.#: [id number] Admission: 02/05/19 Attend Phys: Elder Zhong MD Discharge: 02/07/19 Date of : 42 Report #: [id number] Agree with evaluation, assessment and plan as outlined above by Ct Noland. <ELECTRONICALLY SIGNED> By: David Grant MD 02/07/19 1937 [id number] Grant MD /nt
[2019-02-12 16:08] LABS: STONE CA OXALATE MONOHYDRATE 97 % (()); STONE COLOR Brown (()); STONE COMMENT Note: (())
== END 2019-02-07 16:27 | disposition home or self-care (01) | DRG 659 ==
LOC: M.ERS 11:40 → M.2W 12:43 → M.TBA-ER 12:43 → M.2W 15:44
PROVIDERS: Family Medicine; Urology; ADMIT Internal Medicine
PROC: BT1D1ZZ Fluoroscopy of Right Kidney, Ureter and Bladder using Low Osmolar Contrast (ICD-10-PCS; principal; 2019-02-06)
PROC: 0T768DZ Dilation of Right Ureter with Intraluminal Device, Via Natural or Artificial Opening Endoscopic (ICD-10-PCS; principal; 2019-02-06)
PROC: 0TC68ZZ Extirpation of Matter from Right Ureter, Via Natural or Artificial Opening Endoscopic (ICD-10-PCS; principal; 2019-02-06)
PROC: 30233N1 Transfusion of Nonautologous Red Blood Cells into Peripheral Vein, Percutaneous Approach (ICD-10-PCS; 2019-02-06)
DX: N13.2 Hydronephrosis with renal and ureteral calculous obstruction (principal); I50.33 Acute on chronic diastolic (congestive) heart failure; D62 Acute posthemorrhagic anemia; I97.630 Postprocedural hematoma of a circulatory system organ or structure following a cardiac catheterization; E87.2 Acidosis; I13.0 Hypertensive heart and chronic kidney disease with heart failure and stage 1 through stage 4 chronic kidney disease, or unspecified chronic kidney disease; N17.9 Acute kidney failure, unspecified; N18.4 Chronic kidney disease, stage 4 (severe); M10.9 Gout, unspecified; E78.00 Pure hypercholesterolemia, unspecified; E11.22 Type 2 diabetes mellitus with diabetic chronic kidney disease; I35.0 Nonrheumatic aortic (valve) stenosis; I25.10 Atherosclerotic heart disease of native coronary artery without angina pectoris; E78.5 Hyperlipidemia, unspecified; Z82.49 Family history of ischemic heart disease and other diseases of the circulatory system; Z87.81 Personal history of (healed) traumatic fracture; Z85.72 Personal history of non-Hodgkin lymphomas; Z87.442 Personal history of urinary calculi; Z95.1 Presence of aortocoronary bypass graft; Z92.21 Personal history of antineoplastic chemotherapy; Z92.3 Personal history of irradiation; Z86.718 Personal history of other venous thrombosis and embolism; Z79.01 Long term (current) use of anticoagulants; Z79.1 Long term (current) use of non-steroidal anti-inflammatories (NSAID); Z79.82 Long term (current) use of aspirin; Z79.899 Other long term (current) drug therapy

== ENCOUNTER → 2019-02-17 | Outpatient (CLI) | payer MEDICARE ==
[2019-02-17 11:27] LABS: ABSOLUTE EOSINOPHILS 0.3 thou/uL (0.0-0.7); ABSOLUTE LYMPHOCYTES 0.6 thou/uL (0.8-5.3); ABSOLUTE MONOCYTES 0.5 thou/uL (0.0-1.2); BASOPHILS 0.6 %; EOSINOPHILS 4.9 %; HEMATOCRIT 31.3 % (42.0-52.0); HEMOGLOBIN 10.5 gm/dL (14.0-18.0); LYMPHOCYTES 10.3 %; MCH 33.6 pg (26.0-34.0); MCHC 33.5 g/dL (28.0-37.0); MCV 100.4 fL (80.0-100.0); MONOCYTES 9.7 %; MPV 8.9 fl. (7.2-11.1); NUCLEATED RBCS 0 /100WBC; PLATELET COUNT* 156 thou/uL (150-400); POLYS 74.5 %; RBC 3.12 mil/uL (4.50-6.00); RDW-CV 21.5 % (10.5-14.5); WBC 5.4 thou/uL (4.0-11.0)
[2019-02-17 11:31] LABS: CALCIUM 8.4 mg/dL (8.5-10.1); CREATININE 2.3 mg/dL (0.6-1.3); POTASSIUM 4.1 mmol/L (3.5-5.1)
[2019-02-17 11:56] LABS: ANISOCYTOSIS 2+; MACROCYTES 1+
== END ==
LOC: M.LAB 11:03
PROVIDERS: Registered Nurse
DX: N28.9 Disorder of kidney and ureter, unspecified (principal); D64.9 Anemia, unspecified

== ENCOUNTER → 2019-03-20 | Outpatient (CLI) | payer MEDICARE ==
[2019-03-20 08:07] LABS: CALCIUM 8.7 mg/dL (8.5-10.1); CREATININE 1.9 mg/dL (0.6-1.3); POTASSIUM 3.9 mmol/L (3.5-5.1)
== END ==
LOC: M.ULTRA 06:51
PROVIDERS: Urology
DX: N13.30 Unspecified hydronephrosis (principal); Z88.8 Allergy status to other drugs, medicaments and biological substances

== ENCOUNTER → 2019-07-02 | Outpatient (CLI) | payer MEDICARE ==
[2019-07-02 10:01] LABS: CHOLESTEROL 150 mg/dL (<200); HDL CHOLESTEROL 40 mg/dL (>40); LDL CHOLESTEROL 94 mg/dL (<100); SERUM ASSESSMENT Clear; TC:HDL 3.8 Ratio (Not establshd); TRIGLYCERIDE 83 mg/dL (<150); VLDL 17 mg/dL (<40)
== END ==
LOC: M.LAB 09:19
PROVIDERS: Internal Medicine Cardiovascular Disease
DX: E78.5 Hyperlipidemia, unspecified (principal)